=== PATIENT | female | born 1970 | race Caucasian/White ===

== ENCOUNTER → 2020-10-05 14:15 | Outpatient (CLI) | payer OTHER, SELFPAY ==
[2020-10-05 14:24] LABS: Chloride 104 mmol/L (98-107)
[2020-10-05 14:25] LABS: Potassium 4.5 mmoL/L (3.5-5.1); Sodium 138 mmol/L (136-145)
[2020-10-05 14:27] LABS: Blood Urea Nitrogen 13 mg/dl (7-17); Estimated Glomerular Filt Rate 89 ml/min (>60); GFR (African American) 107 ML/MIN (>60)
[2020-10-05 14:28] LABS: Alanine Aminotransferase 14 U/L (12-78); Albumin Level 4.5 g/dl (3.5-5.0); Albumin/Globulin Ratio 1.6 (1.1-1.8); Alkaline Phosphatase 114 U/L (38-126); Anion Gap 12.5 mEq/L (5-15); Aspartate Amino Transferase 23 U/L (14-36); Bilirubin,Total 0.7 mg/dl (0.2-1.3); Calcium 9.8 mg/dl (8.4-10.2); Carbon Dioxide 26 mmol/L (22.0-30.0); Chol/HDL Ratio 6.2 (1-3.5); Cholesterol 277 mg/dl (140-200); Globulin 2.8 g/dL (1.3-3.2); Glucose 92 mg/dl (74-100); HDL Cholesterol 45 mg/dl (40-60); Total Protein,Serum 7.3 g/dl (6.3-8.2); Triglycerides 245 mg/dl (30-150); VLDL Cholesterol 49 mg/dL (0-40)
[2020-10-05 14:29] LABS: Basophils # 0.1 K/mm3 (0-0.2); Basophils % 0.7 % (0.1-2.0); Eosinophils # 0.1 K/mm3 (0.0-0.4); Eosinophils % 0.6 % (0.1-12.0); Hematocrit 50.8 % (37.0-47.0); Hemoglobin 16.7 g/dL (12.2-16.2); Lymphocytes # 2.5 K/mm3 (0.7-4.5); Lymphocytes % 19.9 % (10-50); Mean Corpuscular HGB Conc 32.8 g/dL (31.8-35.4); Mean Corpuscular Volume 91.4 fl (81-99); Mean Platelet Volume 8.8 fl (7.4-10.4); Monocytes # 0.8 K/mm3 (0.1-1.0); Monocytes % 6.6 % (1.7-9.3); Neutrophils % 72.2 % (37.0-80.0); Platelet Count 282 K/mm3 (142-424); Red Blood Count 5.55 M/mm3 (4.20-5.40); Red Cell Distribution Width 14.3 % (11.5-17.5); White Blood Count 12.5 K/mm3 (4.8-10.8)
[2020-10-05 14:39] LABS: Direct LDL Cholesterol 187.99 mg/dL (100-129)
[2020-10-05 14:45] LABS: T4 (Thyroxine) 9.2 ug/dl (5.53-11.0)
[2020-10-05 14:59] LABS: Thyroid Stimulating Hormone 0.53 uIU/mL (0.465-4.68)
[2020-10-05 15:14] LABS: Hemoglobin A1C 5.4 % (4.0-6.0)
== END ==
PROVIDERS: Visit Provider Family Medicine
DX: Z00.00 Encounter for general adult medical examination without abnormal findings; E11.9 Type 2 diabetes mellitus without complications; E04.9 Nontoxic goiter, unspecified
CPT/HCPCS: 80053; 80061; 83036; 84436; 84443; 85025

== ENCOUNTER → 2020-10-16 09:31 | Outpatient (CLI) | payer OTHER, SELFPAY ==
--- NOTE | 2020-10-16 09:31 | MM_ITS ---
PROCEDURE: MM DIG SCREENING MAMM BI W/CAD Digital Breast Tomosynthesis Included CLINICAL INDICATION: screening There is a history of breast cancer in the patient's maternal aunt. COMPARISON: MG MM MAMMO DIGITAL EMETERIO DIAGN BILAT from 12/22/2018 TECHNIQUE: Standard CC and MLO images and 3D Tomosynthesis was obtained. R2 CAD reviewed. FINDINGS: Moderate scattered fibroglandular densities are seen both breast. A single CAD marking right breast was reviewed and this appears to be benign. There is no suspicious lesion in either breast and no suspicious microcalcifications. IMPRESSION: Fibrofatty parenchyma no suspicious lesions seen BI-RAD Category: 1 Negative FOLLOW-UP: 1YR 1 Year Follow-up (A letter has been sent to the patient regarding results of the study.) Dictated by: Dr. Da Brito MD 10/19/2020 09:51 Dr. Da Brito MD in [place] 10/19/2020 09:51
--- NOTE | 2020-10-16 09:38 | US_ITS ---
PROCEDURE: US THYROID CLINICAL INDICATION: goiter History of thyroid nodules COMPARISON: No exams were available for comparison FINDINGS: Right lobe: 3.9 x 1.6 x 2.4 cm. 3 mm slightly hypoechoic nodule upper pole. 8 mm slightly hypoechoic solid appearing nodule lower pole. 6 mm solid-appearing slightly hypoechoic nodule lower pole. Left lobe: 4.5 x 1.4 x 2.2 cm. 1.4 x 0.9 cm slightly hypoechoic nodule Jewel which appears solid in the upper pole. 0.7 cm spongiform appearing nodule upper pole benign-appearing. 6 mm mixed nodule mid polar region. 12 mm mixed nodule lower pole. 6 mm hypoechoic nodule lower pole. 9 mm slightly hypoechoic nodule lower pole Isthmus: Additional findings: IMPRESSION: Multiple bilateral thyroid nodules as described above. These are T rads level 2 and 3 less than 2.5 cm. Suggest 6-12 month follow-up to confirm stability. Dictated by: Porter Vázquez MD 10/16/2020 16:56 Porter Vázquez MD in [place] 10/16/2020 16:56
== END ==
PROVIDERS: PCP Family Medicine; Visit Provider Family Medicine
DX: Z12.31 Encounter for screening mammogram for malignant neoplasm of breast (principal); E04.9 Nontoxic goiter, unspecified
CPT/HCPCS: 76536; 77063; 77067

== ENCOUNTER → 2021-11-19 16:30 | Outpatient (CLI) | payer OTHER, SELFPAY ==
[2021-11-19 19:01] LABS: Basophils # 0.1 K/mm3 (0-0.2); Basophils % 1.5 % (0.1-2.0); Eosinophils # 0.1 K/mm3 (0.0-0.4); Hematocrit 47.6 % (37.0-47.0); Hemoglobin 15.8 g/dL (12.2-16.2); Lymphocytes # 2.2 K/mm3 (0.7-4.5); Mean Corpuscular HGB Conc 33.3 g/dL (31.8-35.4); Mean Corpuscular Hemoglobin 30.6 pg (27.0-31.2); Monocytes # 0.5 K/mm3 (0.1-1.0); Monocytes % 5.1 % (1.7-9.3); Neutrophils % 67.4 % (37.0-80.0); Platelet Count 271 K/mm3 (142-424); Red Blood Count 5.17 M/mm3 (4.20-5.40); Red Cell Distribution Width 13.7 % (11.5-17.5); White Blood Count 8.9 K/mm3 (4.8-10.8)
[2021-11-19 19:07] LABS: Alanine Aminotransferase 23 U/L (12-78); Albumin Level 3.9 g/dl (3.5-5.0); Albumin/Globulin Ratio 1.5 (1.1-1.8); Alkaline Phosphatase 100 U/L (38-126); Anion Gap 12.7 mEq/L (5-15); Aspartate Amino Transferase 25 U/L (14-36); Bilirubin,Total 0.5 mg/dl (0.2-1.3); Blood Urea Nitrogen 13 mg/dl (7-17); Calcium 9.4 mg/dl (8.4-10.2); Carbon Dioxide 24 mmol/L (22.0-30.0); Chloride 106 mmol/L (98-107); Cholesterol 250 mg/dl (140-200); Estimated Glomerular Filt Rate 76 ml/min (>60); GFR (African American) 92 ML/MIN (>60); Globulin 2.6 g/dL (1.3-3.2); Glucose 162 mg/dl (74-100); HDL Cholesterol 42 mg/dl (40-60); Potassium 3.7 mmoL/L (3.5-5.1); Sodium 139 mmol/L (136-145); Total Protein,Serum 6.5 g/dl (6.3-8.2); Triglycerides 277 mg/dl (30-150); VLDL Cholesterol 55 mg/dL (0-40)
[2021-11-19 19:38] LABS: Thyroid Stimulating Hormone 0.29 uIU/mL (0.465-4.68)
== END ==
PROVIDERS: Visit Provider Family Medicine
DX: Z00.00 Encounter for general adult medical examination without abnormal findings (principal)
CPT/HCPCS: 80053; 80061; 84443; 85025

== ENCOUNTER → 2022-12-03 23:07 | Outpatient (CLI) | payer OTHER, SELFPAY ==
[2022-12-03 17:48] LABS: Alanine Aminotransferase 24 U/L (12-78); Albumin Level 4.3 g/dl (3.5-5.0); Albumin/Globulin Ratio 1.6 (1.1-1.8); Alkaline Phosphatase 141 U/L (38-126); Anion Gap 16.4 mEq/L (5-15); Aspartate Amino Transferase 27 U/L (14-36); Bilirubin,Total 0.3 mg/dl (0.2-1.3); Blood Urea Nitrogen 15 mg/dl (7-17); Calcium 9.4 mg/dl (8.4-10.2); Carbon Dioxide 24 mmol/L (22.0-30.0); Chloride 101 mmol/L (98-107); Chol/HDL Ratio 5.2 (1-3.5); Cholesterol 256 mg/dl (140-200); Estimated Glomerular Filt Rate 105 ml/min (>60); GFR (African American) 127 ML/MIN (>60); Globulin 2.7 g/dL (1.3-3.2); Glucose 95 mg/dl (74-100); HDL Cholesterol 49 mg/dl (40-60); Potassium 4.4 mmoL/L (3.5-5.1); Sodium 137 mmol/L (136-145); Triglycerides 267 mg/dl (30-150); VLDL Cholesterol 53 mg/dL (0-40)
[2022-12-03 17:49] LABS: Basophils # 0.1 K/mm3 (0-0.2); Basophils % 0.6 % (0.1-2.0); Eosinophils # 0.1 K/mm3 (0.0-0.4); Eosinophils % 0.6 % (0.1-12.0); Hematocrit 45.2 % (37.0-47.0); Hemoglobin 14.6 g/dL (12.2-16.2); Lymphocytes # 3.6 K/mm3 (0.7-4.5); Lymphocytes % 26.2 % (10-50); Mean Corpuscular HGB Conc 32.4 g/dL (31.8-35.4); Mean Corpuscular Hemoglobin 29.2 pg (27.0-31.2); Mean Corpuscular Volume 90.3 fl (81-99); Mean Platelet Volume 9.2 fl (7.4-10.4); Monocytes # 0.8 K/mm3 (0.1-1.0); Monocytes % 5.9 % (1.7-9.3); Neutrophils # 9.1 K/mm3 (1.8-7.8); Neutrophils % 66.6 % (37.0-80.0); Platelet Count 318 K/mm3 (142-424); Red Blood Count 5.01 M/mm3 (4.20-5.40); Red Cell Distribution Width 13.9 % (11.5-17.5); White Blood Count 13.7 K/mm3 (4.8-10.8)
[2022-12-03 17:59] LABS: Direct LDL Cholesterol 162.36 mg/dL (100-129)
[2022-12-03 20:07] LABS: Hemoglobin A1C 5.6 % (4.0-6.0)
== END ==
PROVIDERS: PCP Nurse Practitioner Family; Visit Provider Nurse Practitioner Family
DX: Z00.00 Encounter for general adult medical examination without abnormal findings (principal); Z79.899 Other long term (current) drug therapy; Z13.1 Encounter for screening for diabetes mellitus; Z13.220 Encounter for screening for lipoid disorders
CPT/HCPCS: 80053; 80061; 83036; 85025

== ENCOUNTER → 2023-04-03 23:41 | Outpatient (CLI) | payer OTHER, SELFPAY ==
[2023-04-03 18:01] LABS: Cholesterol 301 mg/dl (140-200); HDL Cholesterol 50 mg/dl (40-60); Triglycerides 244 mg/dl (30-150); VLDL Cholesterol 49 mg/dL (0-40)
[2023-04-03 18:31] LABS: Thyroid Stimulating Hormone 0.31 uIU/mL (0.465-4.68)
[2023-04-05 11:33] LABS: Estradiol 9.1 pg/mL (.); FSH 69.7 mIU/mL (.)
== END ==
LOC: LAB.DROPOF 23:42
PROVIDERS: PCP Family Medicine; Visit Provider Family Medicine
DX: Z00.00 Encounter for general adult medical examination without abnormal findings (principal); E04.1 Nontoxic single thyroid nodule; F41.9 Anxiety disorder, unspecified
CPT/HCPCS: 80061; 82670; 83001; 84443

== ENCOUNTER → 2023-06-17 23:00 | Outpatient (CLI) | payer OTHER, SELFPAY ==
[2023-06-17 18:45] LABS: Chol/HDL Ratio 3.8 (1-3.5); Cholesterol 190 mg/dl (140-200); HDL Cholesterol 50 mg/dl (40-60); Triglycerides 148 mg/dl (30-150); VLDL Cholesterol 30 mg/dL (0-40)
[2023-06-17 18:57] LABS: Direct LDL Cholesterol 120.92 mg/dL (100-129)
== END ==
PROVIDERS: PCP Family Medicine; Visit Provider Family Medicine
DX: E78.5 Hyperlipidemia, unspecified (principal)
CPT/HCPCS: 80061

== ENCOUNTER 2023-10-30 10:23 | Outpatient (CLI) | payer OTHER, SELFPAY ==
[2023-10-30 18:43] LABS: Alanine Aminotransferase 24 U/L (12-78); Albumin Level 4.3 g/dl (3.5-5.0); Albumin/Globulin Ratio 1.7 (1.1-1.8); Alkaline Phosphatase 137 U/L (38-126); Anion Gap 12.1 mEq/L (5-15); Aspartate Amino Transferase 25 U/L (14-36); Bilirubin,Total 0.5 mg/dl (0.2-1.3); Blood Urea Nitrogen 13 mg/dl (7-17); Calcium 9.5 mg/dl (8.4-10.2); Carbon Dioxide 23 mmol/L (22.0-30.0); Chloride 109 mmol/L (98-107); Chol/HDL Ratio 3.1 (1-3.5); Cholesterol 145 mg/dl (140-200); Estimated Glomerular Filt Rate 105 ml/min (>60); GFR (African American) 127 ML/MIN (>60); Globulin 2.5 g/dL (1.3-3.2); Glucose 96 mg/dl (74-100); HDL Cholesterol 47 mg/dl (40-60); Potassium 4.1 mmoL/L (3.5-5.1); Sodium 140 mmol/L (136-145); Total Protein,Serum 6.8 g/dl (6.3-8.2); Triglycerides 170 mg/dl (30-150); VLDL Cholesterol 34 mg/dL (0-40)
[2023-10-30 19:17] LABS: Thyroid Stimulating Hormone 0.22 uIU/mL (0.465-4.68)
[2023-10-30 19:52] LABS: Direct LDL Cholesterol 64.83 mg/dL (100-129)
== END 2023-10-30 23:59 | disposition home or self-care (01) ==
LOC: LAB.DROPOF 11-02 10:23
PROVIDERS: PCP Family Medicine; Visit Provider Family Medicine
DX: E04.1 Nontoxic single thyroid nodule (principal); E78.5 Hyperlipidemia, unspecified
CPT/HCPCS: 80053; 80061; 84443

== ENCOUNTER 2024-11-04 14:20 | Outpatient (CLI) | payer OTHER, SELFPAY ==
--- NOTE | 2024-11-04 14:45 | CT_ITS ---
FINAL REPORT TECHNIQUE: Thin section axial CT images of the temporal bones were obtained. Coronal reformatted images were also obtained. This study was performed with techniques to keep radiation doses as low as reasonably achievable (ALARA). Individualized dose reduction techniques using automated exposure control or adjustment of mA and/or kV according to the patient's size were employed. CLINICAL HISTORY: Right ear pain, fluid level behind tympanic membrane COMPARISON: None FINDINGS: Right temporal bone: The internal auditory canal has an unremarkable appearance. The inner ear structures are unremarkable. The external auditory canal has an unremarkable appearance. No abnormality is identified of the middle ear cavity. The ossicles are intact. The mastoid air cells and mastoid antrum have an unremarkable appearance. No bony mass is identified. There is minimal mucoperiosteal thickening in the inferior portion of the maxillary sinus. Left temporal bone: The internal auditory canal has an unremarkable appearance. The inner ear structures are unremarkable. The external auditory canal has an unremarkable appearance. No abnormality is identified of the middle ear cavity. The ossicles are intact. The mastoid air cells and mastoid antrum have an unremarkable appearance. No bony mass is identified. There is minimal mucoperiosteal thickening in the inferior portion of the maxillary sinus. IMPRESSION: Minimal mucoperiosteal thickening, otherwise unremarkable exam. Reviewed, Interpreted and Dictated by Shoaib Simeon MD Transcribed by Sheryl Dobson Authenticated and [facility]
== END 2024-11-04 23:59 | disposition home or self-care (01) ==
LOC: RAD 14:21
PROVIDERS: PCP Family Medicine; Visit Provider Nurse Practitioner
DX: H92.01 Otalgia, right ear (principal); H65.91 Unspecified nonsuppurative otitis media, right ear
CPT/HCPCS: 70480

== ENCOUNTER 2024-11-23 10:38 | Outpatient (CLI) | payer OTHER, SELFPAY ==
[2024-11-23 18:49] LABS: Basophils # 0.1 K/mm3 (0-0.2); Basophils % 0.8 % (0.1-2.0); Eosinophils # 0.1 Kmm3 (0.0-0.4); Eosinophils % 0.7 % (0.1-12.0); Hematocrit 49.6 % (37.0-47.0); Hemoglobin 15.9 g/dL (12.2-16.2); Immature Granulocytes # 0.07 10^3uL; Immature Granulocytes % 0.6 %; Lymphocytes # 2.8 K/mm3 (0.7-4.5); Mean Corpuscular HGB Conc 32.1 g/dL (31.8-35.4); Mean Corpuscular Hemoglobin 28.7 pg (27.0-31.2); Mean Corpuscular Volume 89.5 fl (81-99); Mean Platelet Volume 10.8 fl (7.4-10.4); Monocytes # 0.8 K/mm3 (0.1-1.0); Monocytes % 7.1 % (1.7-9.3); Neutrophils # 7.8 K/mm3 (1.8-7.8); Neutrophils % 66.8 % (37.0-80.0); Nucleated Red Blood Cells # 0 10^3/uL; Nucleated Red Blood Cells % 0 %; Platelet Count 316 K/mm3 (142-424); Red Blood Count 5.54 M/mm3 (4.20-5.40); Red Cell Distribution Width 14.7 % (11.5-17.5); Red Cell Distribution Width-SD 47.9 fL; White Blood Count 11.6 K/mm3 (4.8-10.8)
[2024-11-23 20:04] LABS: Albumin Level 4.2 g/dl (3.5-5.0); Chloride 109 mmol/L (98-107)
[2024-11-23 20:05] LABS: Potassium 4.4 mmoL/L (3.5-5.1); Sodium 137 mmol/L (136-145)
[2024-11-23 20:07] LABS: Alanine Aminotransferase 21 U/L (12-78); Albumin/Globulin Ratio 1.6 (1.1-1.8); Alkaline Phosphatase 142 U/L (38-126); Anion Gap 8.4 mEq/L (5-15); Aspartate Amino Transferase 22 U/L (14-36); Bilirubin,Total 0.4 mg/dl (0.2-1.3); Blood Urea Nitrogen 12 mg/dl (7-17); Carbon Dioxide 24 mmol/L (22.0-30.0); Estimated Glomerular Filt Rate 87 ml/min (>60); GFR (African American) 106 ML/MIN (>60); Globulin 2.7 g/dL (1.3-3.2); Total Protein,Serum 6.9 g/dl (6.3-8.2)
[2024-11-23 20:08] LABS: Calcium 9.3 mg/dl (8.4-10.2); Chol/HDL Ratio 4.9 (1-3.5); Cholesterol 217 mg/dl (140-200); Glucose 105 mg/dl (74-100); HDL Cholesterol 44 mg/dl (40-60); Triglycerides 287 mg/dl (30-150); VLDL Cholesterol 57 mg/dL (0-40)
[2024-11-23 20:21] LABS: Direct LDL Cholesterol 126.74 mg/dL (100-129)
[2024-11-23 20:46] LABS: Thyroid Stimulating Hormone 0.24 uIU/mL (0.465-4.68)
== END 2024-11-23 23:59 | disposition home or self-care (01) ==
LOC: LAB.DROPOF 11-25 12:52
PROVIDERS: PCP Family Medicine; Visit Provider Family Medicine
DX: Z00.00 Encounter for general adult medical examination without abnormal findings (principal); E78.5 Hyperlipidemia, unspecified
CPT/HCPCS: 80053; 80061; 84443; 85025

== ENCOUNTER 2025-06-06 08:18 | Outpatient (CLI) | payer OTHER, SELFPAY ==
--- OUTSIDE RECORDS SUMMARY | 2025-06-06 08:22 | XMS_ITS | Clinical Summary ---
Author Organization [facility] Address [address] [place] [address] Phone Care Team Providers Care Director Of Coding Name Role Phone Seth Jovel MD Primary Care Provider [phone] Allergies Active Allergy Reactions Criticality Noted Date Comments Aspirin 04/01/2010 Meperidine 04/01/2010 Medications LORazepam (ATIVAN) 1 mg Oral Tablet Take by mouth daily as needed for Anxiety. Active Varenicline 0.5 mg (11)- 1 mg (42) Oral Tablets, Dose Pack Take by mouth. Activ e sertraline (ZOLOFT) 100 mg Oral Tablet Take 150 mg by mouth daily. Active bisoprolol (ZEBETA) 5 mg Oral Tablet Take 0.5 Tabs by mouth daily. 30 Tab 11 6 Active Additional Information Patient not taking.Reason: Other, Reported on 03/28/2025 DEXAMETHASONE 0.4% TOPCIAL SOLUTION Use as directed for iontophoresis. Dexamethasone 0.24g; Sterile Water 60 ml 60 mL 09/15/2019 2:10 PM EST 0 Active Additional Information Patient not taking.Reason: Therapy Completed, Reported on 03/28/2025 chlorhexidine (PERIDEX) 0.12 % MM MouthwashIndica tions:Dental caries Take 10 mL by mouth 3 times daily. 118 mL 2 Active Additional Information Patient not taking.Reason: Therapy Completed, Reported on 03/28/2025 buPROPion (WELLBUTRIN XL) 150 mg Oral Tablet Sustained Release 24 hr Take 150 mg by mouth every morning. Active albuterol (PROVENTIL HFA;VENTOLIN HFA) 90 mcg/actuation Inhl HFA Aerosol InhalerIndicati ons:Centrilobul ar emphysema (HCC) Inhale 2 Puffs into the lungs every 6 hours as needed for Wheezing, Shortness of Breath or Bronchospasm. 18 g 11 2 Active cetirizine (ZYRTEC) 10 mg Oral Capsule 10 mg. 5 Active sertraline (ZOLOFT) 50 mg Oral Tablet 5 Active rOPINIRole (REQUIP) 2 mg Oral Tablet 2 mg. 5 Active clonazePAM (KLONOPIN) 2 mg Oral Tablet 2 mg. 5 Active evolocumab 140 mg/mL SubQ Pen Injector 140 mg. 5 Active fluticasone propionate (FLONASE) 50 mcg/actuation Nasl [place], Suspension Daily 5 Active buPROPion (WELLBUTRIN SR) 150 mg Oral tablet sustained-relea se 12 hr 2 Active tretinoin (RETIN-A) 0.025 % Top CreamIndication s:Acne vulgaris Advised patient to start two nights a week then increase to every other night then increase to nightly as tolerated 45 g 3 5 Active Active Problems Problem Noted Date Diagnosed Date Lung nodules 05/01/2022 Overview (05/01/2022): Based on CT chest 04/09/22 Bilateral lung nodules. Assessment & Plan (05/19/2022 12:38 PM EST): Left upper lobe lung nodule has resolved. Right lower lobe diaphragmatic nodule has significantly reduced in size. There is smaller right upper lobe lung nodule which is stable in size. Recommend repeat CT chest in 6 months. Likely all inflammatory Her chest pain appears to be musculoskeletal. Assessment & Plan (05/01/2022 1:34 PM EDT): Personally reviewed CT chest images with patient and at bedside. Has bilateral lung nodules in upper lobes and right lower lobe. Adjacent right lower lobe inflammation versus regional atelectasis is also noted. Right lower lobe nodule likely cause of chest pain that initially prompted the evaluation. High risk for malignancy due to presence of emphysema and smoking. Also in differential - inflammatory diseases likely sarcoidosis, infection and possible histoplasmosis. Recommend PEt CT to further evaluate the lesions. If progressing or persistent + FDG avidty , then would recommend biopsy ( likely CT guided biopsy of right lower lobe nodule) Discussed risks of pneumothorax ( about 10 %), bleeding and Hypoxic respiratory failure . She understands and would like to proceed if needed. Centrilobular emphysema 05/01/2022 Assessment & Plan (05/19/2022 12:39 PM EST): Mild obstruction on PFT Continue albuterol as needed. Has only needed in 2 times since last visit. Has headache when she uses inhaler. Not sure if this consistent. Denies any palpitations or tremors. Unsure if this is side effect. Asked her to observe the timing. If this is consistent will switch to different vendor for albuterol. Recommended flu and covid 19 vaccination. Assessment & Plan (05/01/2022 1:34 PM EDT): Chronic dyspnea. Start albuterol as needed. Await further data from PFT prior to considering further addition of inhalers. Tobacco abuse 05/01/2022 Assessment & Plan (05/19/2022 12:39 PM EST): 5 minutes spent in counseling. Discussed strategies to quit smoking.Plans to quit smoking by end of this year. Encouraged asking family members to help her stick to quit date. On wellbutrin. Assessment & Plan (05/01/2022 1:35 PM EDT): 5 minutes spent in counseling. Discussed strategies to quit smoking. Discussed various pharmacological methods available to help her quit. On wellbutrin , continue the same. Encounters Date Type Department Care Team Description 04/03/2025 Results Follow-Up [facility] Dermatology [facility] [address] [address] Alida Pineda MD DERMATOPATHOLOGY TISSUE SEND OUT REQUEST 03/28/2025 10:30 AM EDT Office Visit [facility] Dermatology [facility] [address] [facility] [address] [place] [phone] Alida Pineda MD Multiple benign melanocytic nevi (Primary Dx); Neoplasm of unspecified behavior of bone, soft tissue, and skin; Acne vulgaris; Seborrheic dermatitis; Lentigines; SK (seborrheic keratosis); Estrada angioma; Diffuse photodamage of skin; Family history of skin cancer; Screening for skin cancer from Last 3 Months Surgical History Surgery Date Site/Laterality Comments APPENDECTOMY KNEE SURGERY GALLBLADDER SURGERY SECTION ENDOMETRIAL ABLATION TUBAL LIGATION Medical History Medical History Date Comments CAD (coronary artery disease) hx mvp and BBB Mitral valve prolapse Family History Medical History Relation Name Comments Hypertension Father COPD Mother Hypertension Mother Relation Name Status Comments Father Mother Social History Tobacco Use Types Packs/Day Years Used Date Smoking Tobacco: Every Day Cigarettes 1 30 Smokeless Tobacco: Never Tobacco Cessation:Ready to Q uit: Not Asked; Counseling Given: Not Answered Alcohol Use Standard Drinks/Week Comments Yes 0 (1 standard drink = 0.6 oz pur e alcohol) rarely Comments No Sex and Gender Information Value Date Recorded Sex Assigned at Not on file Legal Sex Female 7:02 PM EDT Gender Identity Not on file Sexual Orientation Not on file Last Filed Vital Signs Vital Sign Reading Time Taken Comments Blood Pressure 145/75 01/27/2025 7:02 PM EDT Pulse 98 01/27/2025 7:02 PM EDT Temperature 36.5 C (97.7 F) 01/27/2025 5:05 PM EDT Respiratory Rate 16 01/27/2025 5:05 PM EDT Oxygen Saturation 95% 01/27/2025 5:05 PM EDT Inhaled Oxygen Concentration - - Weight 92.5 kg (204 lb) 10/05/2022 11:53 AM EDT Height 165.1 cm (5' 5 ) 10/05/2022 11:53 AM EDT Body Mass Index 33.95 10/05/2022 11:53 AM EDT Plan of Treatment Health Maintenance Due Date Last Done Comments Annual Wellness Exam 1973 DTaP/TDaP/Td (1 - Tdap) 1989 Hepatitis B Vaccine (1 of 3 - 19+ 3-dose series) 1989 Pneumococcal Vaccine 50+ (1 of 2 - PCV) 1989 Cervical Cancer Screening 1991 Pap Smear 1991 HPV/Pap Cotest 2000 Cologuard 2015 Colon Cancer Screening 2015 Colonoscopy 2015 FIT 2015 Sigmoidoscopy 2015 Virtual Colonography 2015 Zoster (1 of 2) 2020 Breast Cancer Screening 12/22/2020 12/22/2018 Low Dose Lung Cancer Screening 11/12/2023 0 11/11/2022, 04/09/2022 COVID-19 Vaccine ( - 2024-2 6 season) 2025 Influenza Vaccine (#1) 2025 Meningococcal B Vaccine Aged Out No l onger eligible based on patient's age to complete this topic Procedures Procedure Name Priority Date/Time Associated Diagnosis Comments DERMATOPATHOLOGY TISSUE SEND OUT REQUEST Routine 03/31/2025 8:40 PM EDT Neoplasm of unspecified behavior of bone, soft tissue, and skin CT CHEST WO CONTRAST Routine 11/11/2022 9:36 AM EDT Lung nodules MM MAMMO DIGITAL EMETERIO DIAGN BILAT Routine 12/22/2018 1:56 PM EDT Breast pain, left from Last 3 Months or Most Recently Relevant to Health Maintenance Results * DERMATOPATHOLOGY TISSUE SEND OUT REQUEST (03/31/2025 8:40 PM EDT) Tissue us Alida Pineda MD PATHOLOGY ORDERABLES Final Result [facility] DERMATOPATHOLOGY [address] [place] [address] * CT CHEST WO CONTRAST (11/11/2022 9:36 AM EDT) Anatomical Region Laterality Modality Chest Computed Tomogra phy 11/11/2022 9:36 AM EDT Impressions 11/11/2022 10:53 AM EDT Previously seen nodules resolved. Moderate emphysema. No current suspicious pulmonary mass. No other new findings. - Note: Radiology results need to be interpreted within a comprehensive clinical context. If you have questions about the radiology report, please contact the office of the ordering clinician. Narrative 11/11/2022 10:[address] CHEST WITHOUT CONTRAST, 11/11/2022 9:36 AM CLINICAL HISTORY: R91.8-Other nonspecific abnormal finding of lung [id number]. COMPARISON: PET/CT from May 09, 2022 and April 09, 2022 CT angiogram of the chest PROCEDURE COMMENTS: Multi-detector CT of the chest with multiplanar reconstructions per protocol. No contrast given. Dose 1 : CT DLP Total : 316.85 mGycm DLP Spiral Max : 313.7 mGycm Maximum CTDI Vol : 9.05 mGy SSDE : 6.516 mGy SSDE Diameter : 44.5 cm SSDE Source : Lat FINDINGS: The RIGHT lower lobe subpleural pulmonary nodule seen on the 04/09/2022 scan has completely resolved. The LEFT upper lobe pulmonary nodule also has completely resolved. There are no suspicious pulmonary nodules at the current time. Moderate diffuse centrilobular emphysema is present. No suspicious mediastinal or hilar adenopathy. There is a small stable hepatic cyst. Procedure Note Salbador Perez MD - 11/11/2022 CT CHEST WITHOUT CONTRAST, 11/11/2022 9:36 AM CLINICAL HISTORY: R91.8-Other nonspecific abnormal finding of lung [id number]. COMPARISON: PET/CT from May 09, 2022 and April 09, 2022 CTangiogram of the chest PROCEDURE COMMENTS: Multi-detector CT of the chest with multiplanar reconstructions per protocol. No contrast given. Dose 1 : CT DLP Total : 316.85 mGycm DLP Spiral Max : 313.7 mGycm Maximum CTDI Vol : 9.05 mGy SSDE : 6.516 mGy SSDE Diameter : 44.5 cm SSDE Source : Lat FINDINGS: The RIGHT lower lobe subpleural pulmonary nodule seen on the 04/09/2022 scan has completely resolved. The LEFT upper lobe pulmonarynodule also has completely resolved. There are no suspicious pulmonary nodules atthe current time. Moderate diffuse centrilobular emphysema is present. No suspicious mediastinal or hilar adenopathy. There is a small stable hepatic cyst. IMPRESSION: Previously seen nodules resolved. Moderate emphysema. No current suspicious pulmonary mass. No other new findings. - Note: Radiology results need to be interpreted within a comprehensiveclinical context. If you have questions about the radiology report, please contactthe office of the ordering clinician. us Salo Lakhani MD IMG CT ORDERABLES Final Result * MM MAMMO DIGITAL EMETERIO DIAGN BILAT (12/22/2018 1:56 PM EDT) Anatomical Region Laterality Modality Breast Bilateral Mammography 12/22/2018 2:13 PM EDT Impressions 12/22/2018 2:13 PM EDT Benign finding ([id number]) ~ RECOMMENDATION: Follow-up diagnostic mammogram of both breasts in 1 year. ~ DISCLAIMER * Any patient with a palpable abnormality, unexplained by breast imaging, should be managed on clinical basis by the attending physician. * Breast imaging has a false negative rate of 15%. * The patient was notified by mail of the results of this examination. *The patient's information was entered into a reminder system with a target due date for the next mammogram. Narrative 12/22/2018 2:13 PM EDT Procedure:MM MAMMO DIGITAL EMETERIO DIAGN BILAT ~ Reason for exam: clinical finding. Indicated problem(s): left breast pain (local). N64.5-[id number]-10-CM ~ MM MAMMO DIGITAL EMETERIO DIAGN BILAT Bilateral CC and MLO view(s) were taken. There are scattered fibroglandular densities. Prior study comparison: Compared with prior studies the most recent being [facility] from October 2011 Calcifications subareolar RIGHT breast which were evaluated in 2011 are relatively stable on repeat mag views. No suspicious mass or distortion. No new calcifications ~ Procedure Note Salbador Perez MD - 12/22/2018 Procedure:MM MAMMO DIGITAL EMETERIO DIAGN BILAT ~ Reason for exam: clinical finding. Indicated problem(s): left breast pain (local). N64.8-[id number]-CM ~ MM MAMMO DIGITAL EMETERIO DIAGN BILAT Bilateral CC and MLO view(s) were taken. There are scattered fibroglandular densities. Prior study comparison: Compared with prior studies the most recentbeing [facility] from October 2011 Calcifications subareolar RIGHT breast which were evaluated in 2011 are relatively stable on repeat mag views. No suspicious mass or distortion.No new calcifications ~ IMPRESSION: Benign finding ([id number]) ~ RECOMMENDATION: Follow-up diagnostic mammogram of both breasts in 1 year. ~ DISCLAIMER * Any patient with a palpable abnormality, unexplained by breast imaging, should be managed on clinical basis by the attending physician. * Breast imaging has a false negative rate of 15%. * The patient was notified by mail of the results of this examination. *The patient's information was entered into a reminder system with atarget due date for the next mammogram. Seth Jovel MD IM MAMMOGRAPHY ORDERABLES Final Result from Last 3 Months or Most Recently Relevant to Health Maintenance Insurance Care Teams Director Of Coding Relationship Specialty Start Date End Date Seth Jovel MD PCP - General 04/01/10
--- OUTSIDE RECORDS SUMMARY | 2025-06-06 08:22 | XMS_ITS | Clinical Summary ---
Author Organization [facility] Address [address] [place] [address] Care Team Providers Care Gearman Name Role Phone Seth Jovel MD Primary Care Provider [phone] Allergies Active Allergy Reactions Criticality Noted Date Comments Aspirin Unknown 08/31/2017 Meperidine Unknown 08/31/2017 Medications rosuvastatin (CRESTOR) 10 MG TABS Take 10 mg by mouth daily. Active sertraline (ZOLOFT) 100 MG TABS Take 100 mg by mouth daily. Active clonazepam (KLONOPIN) 1 MG TABS Take 1 mg by mouth 2 (two) times daily as needed. 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 Not on file Not on file Last Filed Vital Signs Vital Sign Reading Time Taken Comments Blood Pressure 120/78 08/31/2017 2:40 PM EST Pulse - - Temperature - - Respiratory Rate - - Oxygen Saturation - - Inhaled Oxygen Concentration - - Weight 77.1 kg (170 lb) 09/21/2017 1:38 PM EDT Height 165.1 cm (5' 5 ) 09/21/2017 1:38 PM EDT Body Mass Index 28.29 09/21/2017 1:38 PM EDT Plan of Treatment Health Maintenance Due Date Last Done Comments DTap,Tdap,and Td (1 - Tdap) 1981 Pap Screening 1991 Mammogram Screening 2010 Colonoscopy 2015 Pneumococcal 50+ (1 of 1 - PCV) 2020 Shingrix (#1) 2020 Influenza Vaccine (#1) 2025 RSV Vaccine (60+ or ) (1 - 1-dose 75+ series) 2045 HPV Aged Out No longer eligi ble based on patient's age to complete this topic Meningococcal conjugate lelo nt 4 (MCV4) Aged Out No longer eligible b ased on patient's age to complete this topic RSV Immunization (<20 months) Aged Out No longer eligible based on patient's age to complete this topic Care Teams Gearman Relationship Specialty Start Date End Date Seth Jovel MD PCP - General Family Medicine 08/10/17
--- OUTSIDE RECORDS SUMMARY | 2025-06-06 08:22 | XMS_ITS | Encounter Summary ---
Author Organization [facility] [place] [address] Care Team Providers Care Financial Planning Assistant Name Role Phone Seth Jovel MD Primary Care Provider [phone] Encounter Details Date Type Department Care Team (Latest Contact Info) Description 04/03/2025 Results Follow-Up [facility] [place] [facility] [address] [facility] [address] [phone] Alida Pineda MD [address] [place] [address] DERMATOPATHOLOGY TISSUE SEND OUT REQUEST Social History Tobacco Use Types Packs/Day Years Used Date Smoking Tobacco: Every Day Cigarettes 1 30 Smokeless Tobacco: Never Alcohol Use Standard Drinks/Week Comments Yes 0 (1 standard drink = 0.6 oz pur e alcohol) rarely Comments No Sex and Gender Information Value Date Recorded Sex Assigned at Not on file Legal Sex Female 7:02 PM EDT Gender Identity Not on file Sexual Orientation Not on file documented as of this encounter Plan of Treatment Not on file documented as of this encounter Visit Diagnoses Not on filedocumented in this encounter Care Teams Financial Planning Assistant Relationship Specialty Start Date End Date Seth Jovel MD PCP - General 04/01/10 documented as of this encounter
[2025-06-06 08:30] VITALS: BMI 38.4
[2025-06-06 08:43] VITALS: BP 142/73; PULSE 86; RESP 16; TEMP 36.1; O2SAT 97
[2025-06-06] MEDS: METOPROLOL TARTRATE 50MG TABLET PO (09:00)
[2025-06-06] MEDS: IVABRADINE HCL 7.5MG TABLET PO (09:00)
--- NOTE | 2025-06-06 10:00 | CT_ITS ---
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 A noncontrast coronary calcium scan was performed. A CT attenuation threshold of 130 Hounsfield units (HU) was used for the detection of calcium in contiguous voxels of 1 sq mm in area to be counted as individual lesions. Bolus tracking in the ascending aorta with a threshold of 180 HU was performed. Immediately afterwards, ECG synchronized cardiac CT was then performed from the cardiac base to apex using retrospective gating with ECG tube current modulation. A total of 85 mL of Isovue 370 mg/mL contrast medium was administered at 5 mL/sec followed by a saline flush using a biphasic injection protocol. A tube voltage of 120 KVp was used. The patient received the following medications prior to the cardiac CT. 50 mg of oral metoprolol 2 mg of intravenous metoprolol 15 mg of oral ivabradine 0.4 mg of sublingual nitroglycerin The average heart rate at the time of acquisition was 64 bpm and regular. Image Reconstruction Transaxial images were reconstructed at 0.67 mm slide thickness. Data was reviewed interactively on an advanced workstation capable of 2 and 3-dimensional displays in all conventional reconstruction formats, including multiplanar reformations, maximum intensity projections, curved multiplanar reformations, and volume rendered reconstructions. When applicable, selected routine images describing the relevant coronary anatomy and pathology were saved and sent to PACS. Complications None Technical Quality Overall image quality was good. Coronary artery opacification was adequate. Total DLP (Dose-Length Product) is 1489 mGy-cm. The reported value represents the total of one or more individual components during the CT acquisition of this date and at this time, and as such, the same value may appear in more than one CT report depending on the interpreting/reporting physicians. COMPARISON None FINDINGS CT Coronary Calcium Scoring LMA (Left Main Artery) = 0 LAD (Left Anterior Descending) = 0 LCX (Left Coronary Circumflex) = 0 RCA (Right Coronary Artery) = 0 Total Calcium Score = 0 using the AJ-130 method. The interpretation of the calcium heart score is based on the following continuum*: 0 = no calcified plaque detected (risk of coronary artery disease is very low ??? less than 5%) 1-10 = calcium detected in extremely minimal levels (risk of coronary diseases is still low ??? less than 10%) 11-100 = mild levels of plaque detected with certainty (mild or minimal narrowing of heart arteries is likely) 101-400 = definite,at least moderate levels of plaque detected (relatively high risk of a heart attack within 3-5 years) >401-999 = extensive levels of plaque detected (high risk of heart attack, high levels of vascular disease are present, high likelihood of at least one significant coronary narrowing) *The calcium heart score quantifies the burden of coronary calcification/plaque in the coronary arteries. The calcium heart score is not able to evaluate the presence or burden of non-calcified (i.e. soft) plaque. There is no identifiable calcification in the aortic valve, mitral annulus or mitral valve, pericardium, or myocardium. Coronary CT Angiography The coronary arterial system is right dominant. Quantitative Stenosis Grading: Left Main (LM): The left main originates normally from the left sinus of Valsalva. The LM bifurcates into the left anterior descending artery and left circumflex artery. The LM is patent with no evidence of atherosclerosis. Left Anterior Descending (LAD) and Diagonal Branches: The LAD gives off 3 diagonal branch(es). The LAD and its branches are patent with no evidence of atherosclerosis. There is no evidence of LAD-myocardial bridge. Left Circumflex (LCX) and Obtuse Marginals (OM): The LCX gives off 1 Obtuse Marginal (OM) branch(es). The LCX and its branches are patent with no evidence of atherosclerosis. Right Coronary Artery (RCA): The RCA originates normally from the right sinus of Valsalva. The RCA gives off a posterior descending artery (PDA) and posterolateral (PL) branches. The RCA and its branches are patent with no evidence of atherosclerosis. Non-Coronary Cardiac Findings: Analysis of the left ventricular (LV) structure and function was performed after 3-D reconstruction of the LV from axial images, with user-corrected automatic contouring for assessment of LV volumes and user-defined reconstruction from oblique planes for measurement of 3-D cardiac structure and function. -The left ventricle systolic function is normal. -There is no left atrial appendage filling defect. Two right pulmonary veins and two left pulmonary veins drain normally into the left atrium. -No pericardial thickening or calcification. -Central and branch pulmonary arteries in the [id number] are unremarkable. -Thoracic aorta within the visualized thoracic aortic-branches in the [id number] is unremarkable. Extracardiac Structures No significant extra-cardiac findings. Note, however, that this study is focused on the cardiac findings. IMPRESSION -Absence of coronary calcification with an Agatston score = 0 using the AJ-130 method. -No evidence of significant flow-limiting atherosclerosis of the coronary arteries. -No evidence of coronary anomalies or myocardial bridges. -CAD-RADS 0. Management recommendations per ACC/AHA guidelines*, as clinically appropriate. *Recommendations: CAD RADS 0: Reassurance. Consider non-atherosclerotic causes of chest pain. CAD RADS 1: Consider non-atherosclerotic causes of chest pain. Consider preventive therapy and risk factor modification. CAD RADS 2: Consider non-atherosclerotic causes of chest pain. Consider preventive therapy and risk factor modification, particularly for patients with nonobstructive plaque in multiple segments. CAD RADS 3: Consider further functional testing. Consider symptom-guided anti-ischemic and preventive pharmacotherapy as well as risk factor modification per published guideline statements. CAD RADS 4A: Consider further functional testing or invasive coronary angiography with revascularization per published guideline statements. Consider symptom-guided anti-ischemic and preventive pharmacotherapy as well as risk factor modification per published guideline statements. CAD RADS 4B: Invasive coronary angiography recommended with revascularization per published guideline statements. Consider symptom-guided anti-ischemic and preventive pharmacotherapy as well as risk factor modification per published guideline statements. CAD RADS 5: Consider invasive angiography and/or viability assessment with revascularization per published guideline statements. Consider symptom-guided anti-ischemic and preventive pharmacotherapy as well as risk factor modification per published guideline statements. CRITICAL RESULT None COMMUNICATION Per this written report The coronary and cardiac findings of this CCTA were reviewed, reported, and signed by Zak Casillas MD (Bottom Liner) Conclusion Electronically signed by : Brigitte Casillas MD 06/07/2025 16:02:47
[2025-06-06 10:03] LABS: Chloride 102 mmol/L (98-107); Potassium 4.0 mmoL/L (3.5-5.1); Sodium 142 mmol/L (136-145)
[2025-06-06 10:06] LABS: Blood Urea Nitrogen 12 mg/dl (7-17); Creatinine Clearance Estimated 152 mL/min (50-200); Creatinine,Serum 0.70 mg/dl (0.52-1.04); Estimated Glomerular Filt Rate 87 ml/min (>60); GFR (African American) 106 ML/MIN (>60)
[2025-06-06 10:07] LABS: Anion Gap 18.0 mEq/L (5-15); Calcium 9.6 mg/dl (8.4-10.2); Carbon Dioxide 26 mmol/L (22.0-30.0); Glucose 105 mg/dl (74-100)
[2025-06-06 10:25] VITALS: BP 136/102; PULSE 70; RESP 18; TEMP 36.1; O2SAT 97
[2025-06-06] MEDS: NITROGLYCERIN 0.4MG SL TABLET SL (10:28)
[2025-06-06 10:30] VITALS: BP 149/97; PULSE 76; RESP 18; TEMP 34.4; O2SAT 95
[2025-06-06] MEDS: METOPROLOL TARTRATE 5MG/5ML VIAL 5 MG IV (10:30)
[2025-06-06 10:35] VITALS: BP 136/71; PULSE 71; RESP 18; TEMP 36.1; O2SAT 95
[2025-06-06] MEDS: 0.9 % SODIUM CHLORIDE 50 ML VIAL IV (10:36)
[2025-06-06] MEDS: SODIUM CHLORIDE 0.9% 10ML SYR (RAD ONLY) 10 ML IV (10:36)
[2025-06-06] MEDS: IOPAMIDOL-370 (76%);100ML BOTTLE 85 ML IV (10:36)
[2025-06-06 10:40] VITALS: BP 106/69; PULSE 68; RESP 18; TEMP 36.1; O2SAT 96
== END 2025-06-06 10:45 | disposition home or self-care (01) ==
PROVIDERS: PCP Family Medicine; Visit Provider Family Medicine
DX: R07.9 Chest pain, unspecified (principal)
CPT/HCPCS: 75574; 80048; Q9967